=== PATIENT | female | born 1990 | race Caucasian/White ===

== ENCOUNTER 2021-01-05 15:23 | Emergency (ER) | payer MEDICAID, SELFPAY ==
--- NOTE | ~2021-01-05 | XR_ITS ---
XR elbow RT min 3V 01/05/2021 16:25 INDICATION: Right elbow pain PROCEDURE: 4 views right elbow COMPARISON: No prior studies for comparison. FINDINGS: Fracture, dislocation or subluxation is not identified. The soft tissues appear within norm al limits. No foreign bodies are identified. IMPRESSION: 1: NO ACUTE BONE OR JOINT ABNORMALITY IDENTIFIED. Reviewed, dictated and finalized at location B. [employer]
[2021-01-05 15:37] VITALS: BP 113/75; PULSE 63; RESP 16; TEMP 37.1; O2SAT 100
--- NOTE | 2021-01-05 16:22 | ED_ITS ---
HPI - Extremity Injury (Upper) General Chief Complaint: Extremity Injury, Upper Stated Complaint: Rt Elbow Pain Source: patient and RN notes reviewed Limitations: no limitations History of Present Illness HPI narrative: The patient, who is right-handed, presents with half week history of right elbow pain. 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 Pain is mild, slightly worsening, located lateral epicondyle; no bleeding, deformity, redness, visible edema Related Data Allergies Allergy/AdvReac Type Severity Reaction Status Date / Time morphine Allergy Severe Anaphylactic Verified 01/05/21 15:45 Shock Review of Systems Review of Systems: General/Constitutional: No weight loss,fever Eyes: N0: Redness,discharge Ears/Nose/Throat: No: Epistaxis,ear discharge Respiratory: Denies: Hemoptysis Gastrointestinal: No Vomiting, Bleeding-rectal Skin: No Lumps, eruption Neurologic: No Focal Weakness,Sz Hematologic: Denies: Petechiae/Purpura Psychiatric: No: Suicida ideationl All Other Systems: Reviewed and Negative [facility] Comments At time of signature, agree with nursing past medical, surgical, social and family history. There is no relevant family history pertinent to the presenting complaint Exam Narrative: General Appearance: Well appearing, Conjunctiva clear Mouth/Throat: Normal appearing, Normal lips, Supple Respiratory: Airway patent, No respiratory distress MS-elbowl: Normal strength (mostly intact, almost unlimited flexion/extension by pain), Tenderness (epicondyle laterally, with mild decreased ROM), no swelling (laterally), Other (no anterior drawer, no collateral laxity, electron essentially nontender) Skin: Warm, Dry, Normal color Neurological: A&O x3, , Normal affect Course Vital Signs Vital signs: Vital Signs Temperature 98.8 F 01/05/21 15:37 Pulse Rate 63 01/05/21 15:37 Respiratory Rate 16 01/05/21 15:37 Blood Pressure 113/75 01/05/21 15:37 Pulse Oximetry 100 01/05/21 15:37 Temperature 98.8 F 01/05/21 15:37 Pulse Rate 63 01/05/21 15:37 Respiratory Rate 16 01/05/21 15:37 Blood Pressure 113/75 01/05/21 15:37 Pulse Oximetry 100 01/05/21 15:37 Discharge Plan Discharge Clinical Impression: Epicondylitis, lateral Qualifiers: Laterality: right Qualified Code(s): M77.11 - Lateral epicondylitis, right elbow Patient Disposition: Home, Self-Care Condition: Stable Instructions: Tennis Elbow (ED) Additional Instructions: Take anti-inflammatory meds with food, antacid Consider wearing support band on forearm Prescriptions: New prednisone 20 mg tablet 60 mg PO DAILY Qty: 15 RF: 0 Follow-up/Referrals: Jerad,Chago Farnsworth MD [Primary Care Provider] -
== END 2021-01-05 16:34 | disposition home or self-care (01) ==
PROVIDERS: Emergency Provider Emergency Medicine; PCP Internal Medicine
DX: M77.11 Lateral epicondylitis, right elbow (principal)
CPT/HCPCS: 73080; 99213; G0463

== ENCOUNTER 2021-02-05 15:11 | Emergency (ER) | payer MEDICAID, SELFPAY ==
[2021-02-05 16:52] VITALS: BP 122/86; PULSE 88; RESP 16; TEMP 36.6; O2SAT 100
--- NOTE | 2021-02-05 17:29 | ED.URI ---
HPI - URI/Sore Throat General Chief Complaint: Upper Respiratory Infection Stated Complaint: Cough,Congestion,Sinus,Body Aches Time Seen by Provider: 02/05/21 17:20 Source: patient Mode of arrival: ambulatory Limitations: no limitations History of Present Illness HPI Narrative: Yazmin is 30-year-old female patient who ambulated into the [facility]. Patient states she is had a cough for the last 4 to 5 weeks. Sore throat for the last 3 to 4 weeks. Patient states last week her cough has been more productive. She denies any nasal congestion. States she does have a headache. Patient was treated on 01/22/2021 at [facility] for similar symptoms. She was negative for Covid negative for strep throat negative for influenza. They gave her an albuterol and Tessalon Perles. Tessalon Perles she states did not help at all. She has been using [id number] cold and flu medications and Mucinex without relief MD elicited complaint: cough Related Data Home Medications Medication Instructions Recorded Confirmed albuterol sulfate 90 mcg INHALATION PRN PRN 02/05/21 02/05/21 Allergies Allergy/AdvReac Type Severity Reaction Status Date / Time morphine Allergy Severe Anaphylactic Verified 02/05/21 17:26 Shock Review of Systems Review of Systems: CONSTITUTIONAL: Denies body aches, fever, chills, or sweats. EYES: Denies visual changes, redness, or discharge. ENT: Denies rhinorrhea, congestion,+ sore throat, + otalgia. CARDIOVASCULAR: Denies chest pain, palpitations, or edema. RESPIRATORY:+ cough denies dyspnea. GASTROINTESTINAL: Denies abdominal pain, nausea, vomiting, or diarrhea. GENITOURINARY: Denies dysuria or hematuria. SKIN: Denies rash, itching, or wounds. MUSCULOSKELETAL: Denies back pain, joint pain, or myalgia. NEUROLOGIC: Denies headache, numbness, tingling, or weakness. PSYCH: Denies depression or anxiety. All systems reviewed & are unremarkable except as noted in HPI and below [facility] Comments At time of signature, I have reviewed and agree with nursing past medical, surgical, social and family history unless otherwise noted. Please see nursing chart for further information. There is no relevant family history pertinent to the presenting complaint Exam Narrative: GENERAL: Well-appearing, well-nourished, and in no acute distress. HEAD: Normocephalic, atraumatic. EYES: EOMI. No redness or drainage. Conjunctivae normal. ENT: Mucous membranes pink and moist. Nares clear. No rhinorrhea. Bilateral tympanic membranes are dull with minimal fluid. Posterior pharynx is erythemic with moderate postnasal drainage. Uvula midline. NECK: Normal AROM. Supple. No lymphadenopathy. CHEST: No respiratory distress. Clear to auscultation. Harsh productive cough noted HEART: Regular rate and rhythm. No murmur appreciated. Normal peripheral pulses. ABDOMEN: Soft, nontender, nondistended, normal active bowel sounds. MUSCULOSKELETAL: No bony tenderness. EXTREMITIES: Normal range of motion. No edema. SKIN: Warm, dry, no rash. Capillary refill normal. Normal skin turgor. NEURO: No focal deficits. Alert and oriented x3. Gait steady. PSYCH: Normal affect. No signs of depression or anxiety. Course Vital Signs Vital signs: Vital Signs Temperature 36.6 C 02/05/21 16:52 Pulse Rate 88 02/05/21 16:52 Respiratory Rate 16 02/05/21 16:52 Blood Pressure 122/86 02/05/21 16:52 Pulse Oximetry 100 02/05/21 16:52 Temperature 36.6 C 02/05/21 16:52 Pulse Rate 88 02/05/21 16:52 Respiratory Rate 16 02/05/21 16:52 Blood Pressure 122/86 02/05/21 16:52 Pulse Oximetry 100 02/05/21 16:52 MDM - URI/Sore Throat MDM Narrative Medical decision making narrative: Patient will be treated for bronchitis. Patient has had the symptoms for 3 to 4 days. Patient will be put on Augmentin for 10-day regimen. Can be given a steroid. Patient to follow-up with her primary care physician in 7 to 10 days for co
== END 2021-02-05 17:37 | disposition home or self-care (01) ==
PROVIDERS: Emergency Provider Nurse Practitioner Family
DX: J40 Bronchitis, not specified as acute or chronic (principal)
CPT/HCPCS: 99213; G0463

== ENCOUNTER 2021-02-16 12:40 | Emergency (ER) | payer BC, SELFPAY ==
--- NOTE | ~2021-02-16 | XR_ITS ---
EXAMINATION: XR chest 2V DATE: 02/16/2021 13:54 INDICATION: Cough. TECHNIQUE: Frontal and lateral views of the chest were obtained. COMPARISON: None. FINDINGS: The chest demonstrates clear lungs without pneumonia, pleural effusion, or pneumothorax. Th e heart size is normal. IMPRESSION: 1. No acute cardiopulmonary disease. Reviewed, dictated and finalized at location B. [employer]
[2021-02-16 13:08] VITALS: BP 114/80; PULSE 107; RESP 18; TEMP 36.8; O2SAT 99
--- NOTE | 2021-02-16 13:52 | ED.URI ---
HPI - URI/Sore Throat General Chief Complaint: Upper Respiratory Infection Stated Complaint: Cough,Headache,Sore Throat,Shortness of Breath Time Seen by Provider: 02/16/21 13:54 Source: patient and RN notes reviewed Mode of arrival: ambulatory Limitations: no limitations History of Present Illness HPI Narrative: 30-year-old female presents with concern for chronic cough. Reports she has been coughing since around [facility]. Reports she [place]. Reports she had negative COVID test [place] and had negative COVID test approximately 2 weeks into her cough. Reports she reports she is using the albuterol inhaler 3-4 times daily with little relief. She denies shortness of breath, fever, body aches, chills, sweats. MD elicited complaint: cough and sore throat Related Data Home Medications Medication Instructions Recorded Confirmed albuterol sulfate 90 mcg INHALATION PRN PRN 02/05/21 02/16/21 Allergies Allergy/AdvReac Type Severity Reaction Status Date / Time morphine Allergy Severe Anaphylactic Verified 02/16/21 13:44 Shock Review of Systems Review of Systems: CONSTITUTIONAL: Denies malaise, chills, sweats, or fever. EYES: Denies visual changes, redness, or discharge. ENT: Denies rhinorrhea, congestion, sinus pain, otalgia and sore throat. CARDIOVASCULAR: Denies chest pain, palpitations, or edema. RESPIRATORY: Reports chronic persistent cough. Denies dyspnea. GASTROINTESTINAL: Denies abdominal pain, nausea, vomiting, diarrhea SKIN: Denies rash or itching. MUSCULOSKELETAL: Denies myalgia. NEUROLOGIC: Denies headache. All systems reviewed & are unremarkable except as noted in HPI and below [facility] Comments At time of signature, agree with nursing past medical, surgical, social and family history. There is no relevant family history pertinent to the presenting complaint Exam Narrative: GENERAL: Well-appearing, well-nourished, and in no acute distress. HEAD: Normocephalic EYES: PERRLA, conjunctivae clear ENT: Nares clear, turbinates edematous and erythematous, clear discharge. Mucous membranes moist. TM pearly moran with dull light reflex bilaterally; no tragal tenderness. Oropharynx not erythematous without lesions. Tonsils not enlarged and without exudate, no drooling, no hoarseness, no trismus, uvula midline. NECK: Supple. No lymphadenopathy CHEST: Clear to auscultation, breath sounds equal. No wheezing, rhonchi, rales, or stridor. No respiratory distress, speaks in full sentences. HEART: Regular rate and rhythm. No murmur heard. SKIN: Warm, dry, no rash. NEURO: Alert and oriented x3. PSYCH: Normal mood and affect Course Course Emergency Course: Discussed normal findings on chest x-ray. Discussed follow-up with pulmonology for chronic cough. Discussed trial of another course of antibiotic and steroid, discussed trial of antihistamine. Patient is aware of, understands and agrees to treatment plan. Anticipatory guidance given. Patient agrees to follow-up as directed and is aware of reasons to seek care at the emergency department. Portions of this record may have been created with voice recognition software Level of Care: Express Care Visit Vital Signs Vital signs: Vital Signs Temperature 98.2 F 02/16/21 13:08 Pulse Rate 107 H 02/16/21 13:08 Respiratory Rate 18 02/16/21 13:08 Blood Pressure 114/80 02/16/21 13:08 Pulse Oximetry 99 02/16/21 13:08 Temperature 98.2 F 02/16/21 13:08 Pulse Rate 107 H 02/16/21 13:08 Respiratory Rate 18 02/16/21 13:08 Blood Pressure 114/80 02/16/21 13:08 Pulse Oximetry 99 02/16/21 13:08 Reviewed. MDM - URI/Sore Throat MDM Narrative Medical decision making narrative: Differential diagnosis considered: Calabrese virus, strep pharyngitis, allergic rhinitis, upper respiratory tract infection, sinusitis, rhinosinusitis, nasopharyngitis. viral pharyngitis, otitis media, otitis externa, pneumo
== END 2021-02-16 14:20 | disposition home or self-care (01) ==
PROVIDERS: Emergency Provider Nurse Practitioner
DX: R05.9 Cough, unspecified (principal)
CPT/HCPCS: 71046; 99213; G0463

== ENCOUNTER 2022-01-17 11:43 | Emergency (ER) | payer BC, SELFPAY ==
[2022-01-17 12:56] VITALS: BP 109/77; PULSE 86; RESP 20; TEMP 36.4; O2SAT 100
--- NOTE | 2022-01-17 22:11 | ED.GENADULT ---
HPI - General Adult General Chief complaint: Upper Respiratory Infection Stated complaint: Cough,Rt Ear Irritation,Sore Throat,Runny Nose History of Present Illness HPI narrative: 31 y/o female. PMHx None reported. Presents to [facility] today with acute complaints nasal congestion, Cough, RT ear pain, and fever. Manifestations ongoing > 1 week. Denies dizziness, focal weakness. No neck pain, stiffness. No chest pain, palpitations, edema. Intermittent dyspnea, no wheezing, hemoptysis. No GI upset N/V/D. She reports to have been exposed to her parents, recently ill with Covid 19. Related Data Home Medications Medication Instructions Recorded Confirmed oxybutynin chloride 5 mg tablet 5 mg PO DAILY 01/17/22 01/17/22 Allergies Allergy/AdvReac Type Severity Reaction Status Date / Time morphine AdvReac Severe Anaphylactic Verified 01/17/22 12:46 Shock azithromycin AdvReac Mild Hives Verified 01/17/22 13:08 Review of Systems Review of Systems: CONSTITUTIONAL: Positive fever. ENT: Positive rhinorrhea, congestion, otalgia. RESPIRATORY: cough All other systems have been reviewed: Unless noted remaining ROS Negative. Exam Narrative: GENERAL: This is a well-nourished, well-developed adult, in no apparent distress. HEAD: normocephalic, atraumatic. EYES: PERRL. Sclera clear/white. EARS: External ears normal, RT auditory canal erythematous w/bulging TM. Mild RT side discharge, no obstruction. LT normal. NOSE: External nose normal. Positive Rhinorrhea, no obstruction, nares patent. THROAT: Mucous membranes moist, posterior pharynx erythematous. No exudates. Uvula midline, no gross swelling, palate soft. NECK: Neck supple, non-tender without lymphadenopathy, masses or thyromegaly. No meningeal signs. CARDIOVASCULAR: Regular rate and rhythm without murmurs, gallops, or rubs. RESPIRATORY: Clear to auscultation. Breath sounds equal bilaterally. No wheezes, rales, or rhonchi. GASTROINTESTINAL: Abdomen soft, non-tender, nondistended. Bowel sounds are active. No guarding. SKIN: warm, intact with no suspicious lesions or rash, good texture and turgor. NEURO: Alert, active, and age appropriate. No focal neurologic deficits. EXTREMITIES: Negative. Course Course Level of Care: Express Care Visit Vital Signs Vital signs: Vital Signs Temperature 36.4 C L 01/17/22 12:56 Pulse Rate 86 01/17/22 12:56 Respiratory Rate 20 01/17/22 12:56 Blood Pressure 109/77 01/17/22 12:56 Pulse Oximetry 100 01/17/22 12:56 Oxygen Delivery Room Air 01/17/22 12:56 Temperature 36.4 C L 01/17/22 12:56 Pulse Rate 86 01/17/22 12:56 Respiratory Rate 20 01/17/22 12:56 Blood Pressure 109/77 01/17/22 12:56 Pulse Oximetry 100 01/17/22 12:56 Oxygen Delivery Room Air 01/17/22 12:56 Medical Decision Making Differential Diagnosis Differential Diagnosis: Differential Diagnosis: Consideration of the following conditions may be warranted for the presenting problem, they are not final diagnoses: upper respiratory infection, otitis media, sinusitis, RSV viral infection, PNA, bronchitis, pharyngitis, Streptococcal sore throat, COVID-19, Influenza, and other. Vital Signs Vital Signs: Vital Signs Temperature 36.4 C L 01/17/22 12:56 Pulse Rate 86 01/17/22 12:56 Respiratory Rate 20 01/17/22 12:56 Blood Pressure 109/77 01/17/22 12:56 Pulse Oximetry 100 01/17/22 12:56 Oxygen Delivery Room Air 01/17/22 12:56 Temperature 36.4 C L 01/17/22 12:56 Pulse Rate 86 01/17/22 12:56 Respiratory Rate 20 01/17/22 12:56 Blood Pressure 109/77 01/17/22 12:56 Pulse Oximetry 100 01/17/22 12:56 Oxygen Delivery Room Air 01/17/22 12:56 Lab Data Labs: Lab Results 01/17/22 Range/Units 13:00 POC SARS CoV-2 Ag Negative (Negative) Discharge Plan Discharge Clinical Impression: Sinusitis, Upper respiratory infection Patient Disposition: Home, Self-
== END 2022-01-17 13:40 | disposition home or self-care (01) ==
PROVIDERS: Emergency Provider Nurse Practitioner Adult Health; PCP Nurse Practitioner Family
DX: J32.9 Chronic sinusitis, unspecified (principal); J06.9 Acute upper respiratory infection, unspecified; Z20.822 Contact with and (suspected) exposure to COVID-19
CPT/HCPCS: 87426; 99213; C9803; G0463